=== PATIENT | male | born 1965 | race Caucasian/White ===

== ENCOUNTER → 2017-05-13 | Outpatient (CLI) | payer BC ==
[~2017-05-13] MED LIST: HYDR-3419 PO; LISI-461 PO
--- NOTE | 2017-05-13 13:10 | DIAGNOSTIC IMAGING REPORT ---
TESTICULAR ULTRASOUND HISTORY: TESTICULAR MASS COMPARISON: Testicular ultrasound 01/21/2016. FINDINGS: Right testis: 5.1 x 3.4 x 2.5 cm. There are no intratesticular masses. Normal color flow. No hydrocele. Small varicocele, unchanged. There are few small cysts at the tail of the right epididymis with the largest measuring 2 cm. In retrospect, these were present on the prior study. There are also a few subcentimeter epididymal head cyst. Left testis: 3.7 x 3.7 x 2.3 cm. There are no intratesticular masses. Normal color flow. No hydrocele. Small varicocele, unchanged. Multiple cysts adjacent to the left testis with the largest measuring 5 cm. This is located superior to the left testis and obscures the epididymal head. These are not significantly changed and likely represent epididymal cysts. IMPRESSION: 1. Normal bilateral testes. 2. Bilateral extratesticular cysts which likely represent epididymal cysts. These are considered to be benign. 3. Small bilateral varicoceles, unchanged. 4. No testicular masses. Electronically signed by: Miguel Sher M.D. 05/13/2017 1:08 PM Dictated Date/Time: 05/13/2017 1:04 PM
== END | disposition home or self-care (01) ==
LOC: C.ULTR 12:28
PROVIDERS: ATTEND Family Medicine
DX: N50.9 Disorder of male genital organs, unspecified (principal); L72.0 Epidermal cyst; I86.1 Scrotal varices

== ENCOUNTER → 2017-08-27 | Day surgery (SDC) | payer BC ==
--- NOTE | 2017-08-11 10:36 | PAT Medication Instructions ---
Service Date Aug 11, 2017. Current Home Medication List Lisinopril (Zestril), 10 MG PO QAM Medication Instructions For Your Scheduled Surgery - Hold the following medications the morning of surgery: Lisinopril (Zestril), 10 MG PO QAM Nothing to eat or drink after midnight If you have any questions please call us at [phone] or [phone] or [phone]
--- NOTE | 2017-08-11 11:08 | DIAGNOSTIC IMAGING REPORT ---
CHEST PREADMISSION(PA/LAT) CLINICAL HISTORY: Preoperative chest COMPARISON STUDY: No previous studies for comparison. FINDINGS: The cardiac and mediastinal contours are normal. There is no evidence of focal pulmonary consolidation. There is no evidence of failure. No pleural effusions are visualized.[ There are linear subsegmental atelectatic changes at the left lung base. IMPRESSION: Minor left basilar atelectasis. Otherwise negative chest. Electronically signed by: Ronnell Bates M.D. 08/11/2017 11:06 AM Dictated Date/Time: 08/11/2017 11:06 AM
[2017-08-11 11:28] LABS: BASO % 0.2 %; BASO ABS # 0.01 K/uL (0-0.2); COMPLETE YES; IG% 0.5 %; LYMPH % 23.8 %; LYMPH ABS # 1.33 K/uL (1.2-3.4); MEAN CELL VOLUME 87.9 fL (80-100); MEAN CORPUSCULAR HEMOGLOBIN 32.7 pg (25-34); MEAN CORPUSCULAR HGB CONC 37.2 g/dl (32-36); MEAN PLATELET VOLUME 11.5 fL (7.4-10.4); MONO % 6.6 %; NEUT % 65.9 %; PLATELET COUNT 117 K/uL (130-400); RED BLOOD COUNT 4.89 M/uL (4.7-6.1); WHITE BLOOD COUNT 5.58 K/uL (4.8-10.8)
[2017-08-11 11:30] LABS: URINE APPEARANCE CLEAR (CLEAR); URINE BILIRUBIN NEG (NEG); URINE COLOR YELLOW; URINE EPITHELIAL CELL AUTO 0-5 /lpf (0-5); URINE NITRITE NEG (NEG); URINE SPECIFIC GRAVITY 1.014 (1.000-1.030); UROBILINOGEN NEG (NEG)
[2017-08-11 11:35] LABS: MANUAL MICROSCOPIC REQUIRED? NO; REVIEW REQ? NO
[2017-08-11 13:19] LABS: BUN/CREATININE RATIO 13.3 (10-20); CALCIUM 9.2 mg/dl (8.5-10.1); CREATININE 0.92 mg/dl (0.60-1.40)
[~2017-08-27] VITALS: Ht 182.9 cm; Wt 100.8 kg
[~2017-08-27] MED LIST changes: +ATROPINE SULFATE 0.1 MG/ML 5ML SYR IV PRN; +CEFAZOLIN 2000 MG/60 ML D5W IV SCH; +CEFAZOLIN IV 2,000 MG/60 ML D5W IV ONE; +DEXAMETHASONE SOD INJ 4 MG/ML VIAL ONE; +EpHEDrine SULFATE INJ 50 MG/ML AMP IV PRN; +FENTANYL CITRATE INJ 50 MCG/1 ML 2 ML VIAL IV PRN; +FENTANYL CITRATE INJ 50 MCG/1 ML 2 ML VIAL ONE; +GENERAL ORDER PROBLEM SCH; +LACTATED RINGER'S 1000ML 1,000 ML IV SCH; +LIDOCAINE HCL 1% 20 ML VIAL ONE; +LIDOCAINE HCL 2% 2 ML VIAL (20MG/ML) ONE; +MIDAZOLAM HCL 1 MG/ML 2ML VIAL ONE; +NURSING VERBAL MED ORDER ONE; +ONDANSETRON INJ 2 MG/ML 2 ML VIAL IV PRN; +ONDANSETRON INJ 2 MG/ML 2 ML VIAL ONE; +PROPOFOL IV EMULSION 10 MG/ML 20 ML VIAL IV ONE
[2017-08-27 05:38] VITALS: BP 136/81; PULSE 96; TEMP 36.7; O2SAT 96; Ht 182.9 cm; Wt 100.8 kg
--- NOTE | 2017-08-27 07:10 | History & Physical Bridge Note ---
H&P Re-Evaluation Bridge Note: I have examined the patient, reviewed the History & Physical and in the interval since the performance of the History & Physical I have noted the following changes of clinical significance: No changes noted
--- NOTE | 2017-08-27 08:56 | [facility] Post Operative Brief Note ---
Immediate Operative Summary Operative Date Aug 27, 2017. Pre-Operative Diagnosis Spermatocele Post-Operative Diagnosis Spermatocele Procedure(s) Performed Left Scrotal Spermatocelectomy Surgeon Dr. Aggarwal Infant Babysitter Surgeon(s) None Estimated Blood Loss 10CC Findings 3 spermatoceles ,one large and two sub centimeter ones Specimens A: Left Spermatocele B: Second Small Spermatocele
--- NOTE | 2017-08-27 09:00 | Discharge Instructions ---
Discharge Instructions Date of Service Aug 27, 2017. Visit Reason for Visit: Spermatocele Discharge Discharge Diagnosis / Problem: post op left spematocelectomy Discharge Goals Goal(s): Decrease discomfort, Improve function, Increase independence, Improve disease control Activity Recommendations Activity Limitations: per Instructions/Follow-up section (ice 45 minutes on 15 off while awake,no shower 48 hours) no driving on narcotics ,light activity next week Anesthesia . Post Anesthesia Instructions: If you have had General Anesthesia or IV Sedation: * Do not drive today. * Resume driving when surgeon permits. * Do not make important decisions or sign legal documents today. * Call surgeon for: 1. Temperature elevations greater than 101 degrees F. 2. Uncontrollable pain. 3. Excessive bleeding. 4. Persistent nausea and vomiting. 5. Medication intolerance (nausea, vomiting or rash). * For nausea and vomiting use only clear liquids such as: tea, soda, bouillon until nausea subsides, then gradually increase diet as tolerated. * If you have any concerns or questions, call your surgeon's office. If physician is unavailable and it is an emergency, call 911 or go to the nearest emergency room. . Diet Recommendations Recommended Home Diet: resume previous diet Procedures Procedures Performed: Left Scrotal Spermatocelectomy Pending Studies Studies pending at discharge: no Medical Emergencies . Who to Call and When: Medical Emergencies: If at any time you feel your situation is an emergency, please call 911 immediately. . Non-Emergent Contact Non-Emergency issues call your: Urologist Call Non-Emergent contact if: temperature is above 100.5, your pain is not controlled, wound has increased redness . . "Provider Documentation" section prepared by Twin Aggarwal. .
--- NOTE | 2017-08-27 09:19 | OPERATIVE REPORT ---
DATE OF OPERATION: 08/27/2017 PROCEDURE PERFORMED: Left spermatocelectomy. PREOPERATIVE DIAGNOSIS: Left spermatocele. POSTOPERATIVE DIAGNOSES: Two small left spermatoceles and one large left spermatocele. SURGEON: Twin Aggarwal MD ANESTHESIA: General. INDICATIONS FOR PROCEDURE: The patient is a 52-year-old male with ongoing discomfort from a left spermatocele who elected to have surgery for this. DESCRIPTION OF THE PROCEDURE: The patient was taken to the operating room after he was given preoperative antibiotics and Venodyne stockings were placed. He was given general anesthesia. He had shaved previously his scrotal area. He was then prepped and draped in the usual sterile fashion. Then an incision was made horizontally in the mid left hemiscrotum. This incision was extended down through the dartos muscle with electrocautery. The tunica vaginalis was opened and the testes and the spermatocele and the cord were expressed through the tunica vaginalis. The spermatocele was envisioned and I dissected down to just on top of the sac with the larger sac which was the most superior part of the spermatocele. This was the largest spermatocele. I dissected it completely down to its base so that the sac was intact at its base, I clamped the base and just below the base cut the sac, tried to tie it but the tie came off but the sac was completely intact and tied the base with a 3-0 Vicryl suture. I did tie off 2 smaller subcentimeter; one about 8 mm and one about 4-5 mm that were closer to the testis. No other spermatoceles were seen. Then I was careful to cauterize any areas of bleeding. I then closed the epididymis with a running 3-0 chromic suture. Again, search for any bleeders and then closed the dartos muscle with a running 3-0 chromic placing a quarter inch Wilmer drain in the most dependent part of the scrotum and sewing this in the place with nylon. The patient had his skin closed with interrupted vertical mattress sutures of 3-0 chromic. At the end of the procedure, fluff dressings were placed and a scrotal support was placed. The patient was transferred to the recovery room in stable condition. I attest to the content of the Intraoperative Record and any orders documented therein. Any exception s are noted below.
--- NOTE | 2017-08-27 09:46 | Anesthesiology Progress Note ---
Anesthesia Post Op Note Date & Time Aug 27, 2017 at 09:46 Vital Signs Pain Intensity: 3 Vital Signs Past 12 Hours Date Time Temp Pulse Resp B/P (MAP) Pulse Ox O2 Delivery O2 Flow Rate FiO2 08/27/17 09:25 70 20 123/70 93 Room Air Oxymask 08/27/17 09:15 70 20 109/70 97 Oxymask 10 08/27/17 09:05 73 20 115/62 97 Oxymask 10 08/27/17 08:55 36.1 73 20 120/72 97 Oxymask 10 08/27/17 05:38 36.7 96 18 136/81 (99) 96 Room Air Notes Mental Status: alert / awake / arousable, participated in evaluation Pt Amnestic to Procedure: Yes Nausea / Vomiting: adequately controlled Pain: adequately controlled Airway Patency, RR, SpO2: stable & adequate BP & HR: stable & adequate Hydration State: stable & adequate Anesthetic Complications: no major complications apparent
[2017-08-27 10:00] VITALS: BP 133/86; PULSE 65; TEMP 36.2; O2SAT 96
[2017-08-27 10:30] VITALS: BP 132/76; PULSE 71; O2SAT 93
[2017-08-27 11:00] VITALS: BP 153/91; PULSE 68; TEMP 36.6; O2SAT 96
== END | disposition home or self-care (01) ==
LOC: C.ACU 05:22
PROVIDERS: ATTEND Urology
DX: N43.40 Spermatocele of epididymis, unspecified (principal); N40.0 Benign prostatic hyperplasia without lower urinary tract symptoms; Z68.30 Body mass index [BMI] 30.0-30.9, adult; M19.90 Unspecified osteoarthritis, unspecified site; Z82.49 Family history of ischemic heart disease and other diseases of the circulatory system; Z83.3 Family history of diabetes mellitus

== ENCOUNTER 2022-04-15 17:51 | Inpatient (IN) ==
[2022-04-15] MEDS ORDERED: MULTI-VITAMIN INFUSION 10 ML, THIAMINE HCL 100 MG, FOLIC ACID 1 MG in SODIUM CHLORIDE 0... IV ONE (18:02)
--- NOTE | 2022-04-15 18:05 | Emergency Department Note ---
Impression & Plan Overdose, Depression with suicidal ideation ED Provider Note NAME: DERIAN IQBAL AGE: 56 SEX: M : 1965 ARRIVES VIA: Walk-In INFORMANT: Patient, ED PROVIDER(S): Alen Yañez MD Chief Complaint: Overdose HPI: Patient presents due to concern for overdose taking an unknown amount of Klonopin and mixing it with a glass of tequila which occurred sometime after lunch today. The patient had done it with the intention of harming himself. The patient had also put a kitchen knife to the right side of his neck. The patient does have a prior history of depression and did suffer a breakdown maybe 20 years ago when he was having some marital issues but this has not been an issue since then. The patient states that he did feel very overwhelmed today. Patient denies any access to guns or weapons and does not have any knives on him currently. The patient denies taking anything else with the exception of the Klonopin and the alcohol. Patient is also prescribed sertraline Wellbutrin denies taking this inappropriately. Patient denies tobacco. Patient denies any nausea vomiting diarrhea chest pain or shortness of breath. ROS: See HPI for pertinent positives and negatives. A total of 10 systems were reviewed and otherwise negative. Past medical history: See below Surgical history: See below Social history: See below Physical Exam: GENERAL: NAD, wearing a mask, non-toxic. EYE EXAM: Normal conjunctiva. PERRL, no anisocoria and EOM's grossly intact w/o pain. OROPHARYNX: Moist mucus membranes. Grossly normal dentition. NECK: Supple, no nuchal rigidity, no adenopathy, non-tender. No signs of meningismus. Small eschar to the right lateral neck, does not violate the platysmus. No signs of hematoma. LUNGS: Clear to auscultation. Normal chest wall mechanics. HEART: NSR, no MRG. ABDOMEN: Abdomen soft, non-tender, normo-active bowel sounds, no masses, no rebound or guarding. BACK: No CVA TTP. SKIN: No rashes and no bruising. UPPER EXTREMITIES: Upper extremities are grossly normal. LOWER EXTREMITIES: Grossly normal, no edema. NEURO EXAM: A&O x3, cranial nerves II-XII grossly intact, normal speech, moves all 4 extremities on command w/o issue. Psych: Positive SI, negative HI or AVH. Differential diagnoses: Mood disorder, infection, hypoglycemia, electrolyte abnormalities, cardiac sources, intracerebral event, toxicologic, trauma, neurologic, as well as other pathologies. Course: Patient was seen and evaluated the bedside. Full history physical exam was performed. EKG interpreted by me Normal sinus rhythm, rate of 76, normal [place] and QRS and QT, left axis deviation, T wave version lead III and aVF. No ST elevations. Imaging Studies: See Below Cardiac monitoring: An order was placed for continuous cardiac monitoring. The monitor shows a rate of 77 with sinus rhythm. MDM: Patient was seen due to concern for overdose. Blood work was obtained along with UDS and talk screen. Patient was ordered a banana bag. He states that he does not drink daily but this was done out of a abundance of caution to help with electrolyte and vitamin replacement. Tetanus is up-to-date. Patient was clinically sober and evaluated by the case management coordinator patient blood work is fairly unremarkable. Patient was unable to describe the amount of Klonopin taken but the patient was eventually clinically sober and the patient's alcohol is only 50. Patient was he medically cleared. Patient was accepted to [facility] and accepted to the inpatient psychiatric service. Past Med/Surg History Medical History Depression H/O: HTN (hypertension) Surgical History No pertinent past surgical history Social History Smoking Status: Never smoker Hx Alcohol Use: Yes Hx Substance Use: No Feels Safe at Home: Yes Allergies Allergies Allergy/AdvReac Type Severity Reaction Status Date / Time No Known Allergies Allergy Verified 04/15/22 18:29 Home Meds Home Medications Medication Instructions Recorded Confirmed bupropion HCl 150 mg 24 hr tablet, 150 mg PO QAM 04/15/22 04/15/22 extended release (Wellbutrin XL) clonazepam 0.25 mg disintegrating 0.125 mg PO DIRECTED PRN 04/15/22 04/15/22 tablet hydrochlorothiazide 25 mg tablet 25 mg PO DAILY 04/15/22 04/15/22 lisinopril 40 mg tablet 40 mg PO DAILY 04/15/22 04/15/22 sertraline 100 mg tablet (Zoloft) 100 mg PO QAM 04/15/22 04/15/22 trazodone 150 mg tablet 150 mg PO HS 04/15/22 04/15/22 Results & Data (ED) Vital Signs Vital Signs - 24 hr 04/15/22 17:55 04/15/22 18:25 04/15/22 19:11 Temperature 36.6 C Temperature Source Temporal Artery Scan Pulse Rate 88 Pulse Rate [Apical] 71 67 Pulse Rhythm [Apical] Regular Pulse Strength [Apical] Respiratory Rate 14 14 21 Respiratory Effort / Characteristics Non-Labored Non-Labored Spontaneous Respiratory Depth Normal Normal Shallow Blood Pressure 86/53 L Blood Pressure [Left Arm] 96/45 L 91/55 L Blood Pressure Mean 64 Blood Pressure Mean [Left Arm] 62 67 Pulse Oximetry 94 96 93 Oxygen Delivery Method Room Air Room Air Room Air Sepsis Recent Fever Within 48 Hours No Sepsis New/Unexplained Change in Mental Status No Sepsis Action Taken by Nursing No Action Required 04/15/22 21:14 Temperature Temperature Source Pulse Rate Pulse Rate [Apical] 65 Pulse Rhythm [Apical] Regular Pulse Strength [Apical] Normal Respiratory Rate 21 Respiratory Effort / Characteristics Non-Labored Respiratory Depth Normal Blood Pressure Blood Pressure [Left Arm] 108/65 Blood Pressure Mean Blood Pressure Mean [Left Arm] 79 Pulse Oximetry 96 Oxygen Delivery Method Room Air Sepsis Recent Fever Within 48 Hours Sepsis New/Unexplained Change in Mental Status Sepsis Action Taken by Residential Medications Current Medication List: was personally reviewed by me Laboratory Data Attestation: I reviewed the patient's lab results. Result diagrams: 04/15/22 18:16 04/15/22 18:16 Lab Results 04/15/22 04/15/22 04/15/22 Range/Units 18:16 18:16 18:16 WBC 5.80 (4.8-10.8) K/uL RBC 4.74 (4.7-6.1) M/uL Hgb 16.0 (14.0-18.0) g/dL Hct 43.6 (42-52) % MCV 92.0 (80-100) fL MCH 33.8 (25-34) pg MCHC 36.7 H (32-36) g/dL RDW Std Deviation 43.2 (36.4-46.3) fL RDW Coeff of Stacey 12.7 (11.5-14.5) % Plt Count 125 L (130-400) K/uL MPV 11.9 H (7.4-10.4) fL Immature Gran % (Auto) 0.2 % Neut % (Auto) 64.0 % Lymph % (Auto) 27.1 % Hawkins % (Auto) 7.1 % Eos % (Auto) 1.4 % Baso % (Auto) 0.2 % Neut # (Auto) 3.72 (1.4-6.5) K/uL Lymph # (Auto) 1.57 (1.2-3.4) K/uL Hawkins # (Auto) 0.41 (0.11-0.59) K/uL Eos # (Auto) 0.08 (0-0.5) K/uL Baso # (Auto) 0.01 (0-0.2) K/uL Immature Gran # (Auto) 0.01 (0.00-0.02) K/uL Sodium 139 (136-145) mmol/L Potassium 3.3 L (3.5-5.1) mmol/L Chloride 102 (98-107) mmol/L Carbon Dioxide 28 (21-32) mmol/L Anion Gap 9 (3-11) BUN 18 (6-23) mg/dl Creatinine 1.25 (0.6-1.4) mg/dl Est Cr Clr Drug Dosing Not Reportable Est GFR ( Amer) 73.1 ml/min Est GFR (Non-Af Amer) 63.1 ml/min BUN/Creatinine Ratio 14.4 (10-20) Glucose 88 (70-99(Fasting)) mg/dl Calcium 9.3 (8.5-10.1) mg/dl Magnesium (1.7-2.4) mg/dl Total Bilirubin 0.6 (0.2-1.0) mg/dl AST 11 L (13-39) U/L ALT 16 (7-52) U/L Alkaline Phosphatase 61 (34-104) U/L Total Protein 6.5 (6.0-8.3) gm/dl Albumin 4.0 (3.4-5.0) gm/dl Globulin 2.5 (2.5-4.0) gm/dl Albumin/Globulin Ratio 1.6 (0.9-2) TSH 2.455 (0.300-4.500) uIu/ml Urine Color Urine Appearance (Clear) Urine pH (4.5-7.5) Ur Specific [place] (1.000-1.030) Urine Protein (Negative) Urine Glucose (UA) (Negative) Urine Ketones (Negative) Urine Blood (Negative) Urine Nitrite (Negative) Urine Bilirubin (Negative) Urine Urobilinogen (Negative) Ur Leukocyte Esterase (Negative) Urine WBC (Auto) (0-5) /hpf Urine RBC (Auto) (0-4) /hpf U Hyaline Cast (Auto) (0-5) /lpf U Epithel Cells (Auto) (0-5) /lpf Urine Bacteria (Auto) (Negative) Granular Casts (0) /lpf Urine Mucus (None Prsent) Salicylates (3.0-30) mg/dl Urine Opiates Screen (Neg) Ur Methadone, Qual (Neg) Acetaminophen (10-30) ug/ml Urine Barbiturates (Neg) Ur Phencyclidine (PCP) (Neg) U Amphetamin/Meth Scrn (Neg) MDMA (Ecstasy) Screen (Neg) U Benzodiazepines Scrn (Neg) Ur Cocaine Metabolite (Neg) U Marijuana (THC) Screen (Neg) Ethyl Alcohol mg/dL (<10.0) mg/dl SARS-CoV-2, RNA, NAAT (NEGATIVE) 04/15/22 04/15/22 04/15/22 Range/Units 18:16 18:16 18:16 WBC (4.8-10.8) K/uL RBC (4.7-6.1) M/uL Hgb (14.0-18.0) g/dL Hct (42-52) % MCV (80-100) fL MCH (25-34) pg MCHC (32-36) g/dL RDW Std Deviation (36.4-46.3) fL RDW Coeff of Stacey (11.5-14.5) % Plt Count (130-400) K/uL MPV (7.4-10.4) fL Immature Gran % (Auto) % Neut % (Auto) % Lymph % (Auto) % Hawkins % (Auto) % Eos % (Auto) % Baso % (Auto) % Neut # (Auto) (1.4-6.5) K/uL Lymph # (Auto) (1.2-3.4) K/uL [place] # (Auto) (0.11-0.59) K/uL Eos # (Auto) (0-0.5) K/uL Baso # (Auto) (0-0.2) K/uL Immature Gran # (Auto) (0.00-0.02) K/uL Sodium (136-145) mmol/L Potassium (3.5-5.1) mmol/L Chloride (98-107) mmol/L Carbon Dioxide (21-32) mmol/L Anion Gap (3-11) BUN (6-23) mg/dl Creatinine (0.6-1.4) mg/dl Est Cr Clr Drug Dosing Est GFR ( Amer) ml/min Est GFR (Non-Af Amer) ml/min BUN/Creatinine Ratio (10-20) Glucose (70-99(Fasting)) mg/dl Calcium (8.5-10.1) mg/dl Magnesium 2.1 (1.7-2.4) mg/dl Total Bilirubin (0.2-1.0) mg/dl AST (13-39) U/L ALT (7-52) U/L Alkaline Phosphatase (34-104) U/L Total Protein (6.0-8.3) gm/dl Albumin (3.4-5.0) gm/dl Globulin (2.5-4.0) gm/dl Albumin/Globulin Ratio (0.9-2) TSH (0.300-4.500) uIu/ml Urine Color Urine Appearance (Clear) Urine pH (4.5-7.5) Ur Specific [place] (1.000-1.030) Urine Protein (Negative) Urine Glucose (UA) (Negative) Urine Ketones (Negative) Urine Blood (Negative) Urine Nitrite (Negative) Urine Bilirubin (Negative) Urine Urobilinogen (Negative) Ur Leukocyte Esterase (Negative) Urine WBC (Auto) (0-5) /hpf Urine RBC (Auto) (0-4) /hpf U Hyaline Cast (Auto) (0-5) /lpf U Epithel Cells (Auto) (0-5) /lpf Urine Bacteria (Auto) (Negative) Granular Casts (0) /lpf Urine Mucus (None Prsent) Salicylates < 3.0 L (3.0-30) mg/dl Urine Opiates Screen (Neg) Ur Methadone, Qual (Neg) Acetaminophen < 3 L (10-30) ug/ml Urine Barbiturates (Neg) Ur Phencyclidine (PCP) (Neg) U Amphetamin/Meth Scrn (Neg) MDMA (Ecstasy) Screen (Neg) U Benzodiazepines Scrn (Neg) Ur Cocaine Metabolite (Neg) U Marijuana (THC) Screen (Neg) Ethyl Alcohol mg/dL 50.9 H (<10.0) mg/dl SARS-CoV-2, RNA, NAAT (NEGATIVE) 04/15/22 04/15/22 04/15/22 Range/Units 19:51 20:54 20:54 WBC (4.8-10.8) K/uL RBC (4.7-6.1) M/uL Hgb (14.0-18.0) g/dL Hct (42-52) % MCV (80-100) fL MCH (25-34) pg MCHC (32-36) g/dL RDW Std Deviation (36.4-46.3) fL RDW Coeff of Stacey (11.5-14.5) % Plt Count (130-400) K/uL MPV (7.4-10.4) fL Immature Gran % (Auto) % Neut % (Auto) % Lymph % (Auto) % [place] % (Auto) % Eos % (Auto) % Baso % (Auto) % Neut # (Auto) (1.4-6.5) K/uL Lymph # (Auto) (1.2-3.4) K/uL [place] # (Auto) (0.11-0.59) K/uL Eos # (Auto) (0-0.5) K/uL Baso # (Auto) (0-0.2) K/uL Immature Gran # (Auto) (0.00-0.02) K/uL Sodium (136-145) mmol/L Potassium (3.5-5.1) mmol/L Chloride (98-107) mmol/L Carbon Dioxide (21-32) mmol/L Anion Gap (3-11) BUN (6-23) mg/dl Creatinine (0.6-1.4) mg/dl Est Cr Clr Drug Dosing Est GFR ( Amer) ml/min Est GFR (Non-Af Amer) ml/min BUN/Creatinine Ratio (10-20) Glucose (70-99(Fasting)) mg/dl Calcium (8.5-10.1) mg/dl Magnesium (1.7-2.4) mg/dl Total Bilirubin (0.2-1.0) mg/dl AST (13-39) U/L ALT (7-52) U/L Alkaline Phosphatase (34-104) U/L Total Protein (6.0-8.3) gm/dl Albumin (3.4-5.0) gm/dl Globulin (2.5-4.0) gm/dl Albumin/Globulin Ratio (0.9-2) TSH (0.300-4.500) uIu/ml Urine Color Yellow Urine Appearance Clear (Clear) Urine pH 5.5 (4.5-7.5) Ur Specific [place] 1.015 (1.000-1.030) Urine Protein Negative (Negative) Urine Glucose (UA) Negative (Negative) Urine Ketones Negative (Negative) Urine Blood Trace H (Negative) Urine Nitrite Negative (Negative) Urine Bilirubin Negative (Negative) Urine Urobilinogen Negative (Negative) Ur Leukocyte Esterase Negative (Negative) Urine WBC (Auto) 1-5 (0-5) /hpf Urine RBC (Auto) 0-4 (0-4) /hpf U Hyaline Cast (Auto) 10-30 H (0-5) /lpf U Epithel Cells (Auto) 20-30 H (0-5) /lpf Urine Bacteria (Auto) Negative (Negative) Granular Casts 1-5 H (0) /lpf Urine Mucus Present A (None Prsent) Salicylates (3.0-30) mg/dl Urine Opiates Screen Neg (Neg) Ur Methadone, Qual Neg (Neg) Acetaminophen (10-30) ug/ml Urine Barbiturates Neg (Neg) Ur Phencyclidine (PCP) Neg (Neg) U Amphetamin/Meth Scrn Neg (Neg) MDMA (Ecstasy) Screen Pos H (Neg) U Benzodiazepines Scrn Neg (Neg) Ur Cocaine Metabolite Neg (Neg) U Marijuana (THC) Screen Neg (Neg) Ethyl Alcohol mg/dL (<10.0) mg/dl SARS-CoV-2, RNA, NAAT NEGATIVE (NEGATIVE) Administered Medications Discontinued Medications Multivitamins 10 ml/ Thiamine HCl 100 mg/ Folic Acid 1 mg/Sodium Chloride 1,011.2 mls @ 1,011.2 mls/hr IV .Q1H ONE Stop: 04/15/22 19:01 Last Infusion: 04/15/22 20:10 Dose: 0 mls/hr Documented by: [id number] Admin: 04/15/22 19:06 Dose: 1,011.2 mls/hr Documented by: [id number] Sodium Chloride (Nss 1000ml) 1,000 mls @ 999 mls/hr IV .Q1H1M ONE Stop: 04/15/22 20:36 Last Infusion: 04/15/22 21:50 Dose: 0 mls/hr Documented by: [id number] Admin: 04/15/22 20:20 Dose: 999 mls/hr Documented by: [id number] Potassium Chloride (Potassium Chloride Crtab 20 Meq Tabcr) 40 meq PO NOW STA Stop: 04/15/22 19:37 Last Admin: 04/15/22 20:18 Dose: 40 meq Documented by: [id number] Discharge Plan Visit Data Chief Complaint: Mental Health Evaluation Stated Complaint: MHID, [place] OD?, ETOH, SUICIDAL IDEATION ED Provider: Alen Yañez Discharge Problem: Overdose, Depression with suicidal ideation Forms Stand Alone Forms: [facility], Suicide Prevention Resources Prescriptions Prescriptions: No Action sertraline [Zoloft] 100 mg tablet 100 mg PO QAM RF: 0 trazodone 150 mg tablet 150 mg PO HS RF: 0 hydrochlorothiazide 25 mg Tablet 25 mg PO DAILY RF: 0 lisinopril 40 mg Tablet 40 mg PO DAILY RF: 0 clonazepam [Klonopin] 0.25 mg Tablet,Disintegrating 0.125 mg PO DIRECTED PRN (Reason: NEEDED PER PT) RF: 0 bupropion HCl [Wellbutrin XL] 150 mg tablet extended release 24 hr 150 mg PO QAM RF: 0 Referrals Referrals: Keya Chambers [Primary Care Provider] -
[2022-04-15 19:00] LABS: Basophils # (auto) 0.01 K/uL (0-0.2); Basophils % (auto) 0.2 %; Eosinophils # (auto) 0.08 K/uL (0-0.5); Eosinophils % (auto) 1.4 %; Hematocrit (blood only) 43.6 % (42-52); Immature Granulocytes # (auto) 0.01 K/uL (0.00-0.02); Immature Granulocytes % (auto) 0.2 %; Lymphocytes # (auto) 1.57 K/uL (1.2-3.4); Lymphocytes % (auto) 27.1 %; Mean Corpuscular Hemoglobin 33.8 pg (25-34); Mean Corpuscular Hgb Conc 36.7 g/dL (32-36); Mean Platelet Volume 11.9 fL (7.4-10.4); Monocytes # (auto) 0.41 K/uL (0.11-0.59); Monocytes % (auto) 7.1 %; Neutrophils # (auto) 3.72 K/uL (1.4-6.5); Platelet Count 125 K/uL (130-400); RDW Coefficient of Variation 12.7 % (11.5-14.5); RDW Standard Deviation 43.2 fL (36.4-46.3); Red Blood Count 4.74 M/uL (4.7-6.1)
[2022-04-15 19:10] LABS: Acetaminophen < 3 ug/ml (10-30); Alanine Aminotransferase 16 U/L (7-52); Albumin Globulin Ratio 1.6 (0.9-2); Alkaline Phosphatase 61 U/L (34-104); Anion Gap 9 (3-11); Aspartate Aminotransferase 11 U/L (13-39); BUN Creatinine Ratio 14.4 (10-20); Bilirubin,Total 0.6 mg/dl (0.2-1.0); Blood Urea Nitrogen 18 mg/dl (6-23); Calcium 9.3 mg/dl (8.5-10.1); Carbon Dioxide 28 mmol/L (21-32); Chloride 102 mmol/L (98-107); Est GFR (African American) 73.1 ml/min; Est GFR (Non-African American) 63.1 ml/min; Globulin 2.5 gm/dl (2.5-4.0); Glucose 88 mg/dl (70-99(Fasting)); Potassium 3.3 mmol/L (3.5-5.1); Salicylate < 3.0 mg/dl (3.0-30); Sodium 139 mmol/L (136-145); Total Protein 6.5 gm/dl (6.0-8.3)
[2022-04-15] MEDS ORDERED: SODIUM CHLORIDE 0.9% 1000ML 1,000 ML IV ONE (19:36)
[2022-04-15] MEDS ORDERED: POTASSIUM CHLORIDE CRTAB 20 MEQ TABCR PO STA (19:36)
[2022-04-15 21:13] LABS: Appearance Urine Clear (Clear); Bacteria Urine Automated Negative (Negative); Bilirubin Urine Negative (Negative); Blood Urine Trace (Negative); Color Urine Yellow; Epithelial Cell Urine Auto 20-30 /lpf (0-5); Glucose Urine UA Negative (Negative); Ketones Urine Negative (Negative); Leukocyte Esterase Urine Negative (Negative); Nitrite Urine Negative (Negative); Protein Urine Negative (Negative); RBC Urine Automated 0-4 /hpf (0-4); Specific Gravity Urine 1.015 (1.000-1.030); Urobilinogen Urine Negative (Negative); pH Urine 5.5 (4.5-7.5)
[2022-04-15 21:30] LABS: Amphetamines+Metham, Urine Neg (Neg); Barbiturates, Urine Neg (Neg); Benzodiazepine, Urine Neg (Neg); Cocaine, Urine Neg (Neg); MDMA (Ecstacy), Urine Pos (Neg); Methadone, Urine Neg (Neg); Opiate, Urine Neg (Neg); Phencyclidine, Urine Neg (Neg)
[2022-04-15 21:40] LABS: Mucus Urine Present (None Prsent)
[2022-04-15] MEDS ORDERED: ACETAMINOPHEN 325 MG TAB PO PRN (22:37)
[2022-04-15] MEDS ORDERED: MAGNESIUM HYDROXIDE SUSP 30 ML UDC PO PRN (22:37)
[2022-04-15] MEDS ORDERED: LORazepam 1 MG TAB PO PRN (22:37)
[2022-04-15] MEDS ORDERED: hydrOXYzine HCl 25 MG TAB PO PRN ×2 (22:37)
[2022-04-15] MEDS ORDERED: ALUMINUM/MAGNESIUM SUSP 30 ML UDC PO PRN (22:37)
[2022-04-15] MEDS ORDERED: BISMUTH SUBSALICYLATE LIQD 236 ML PO PRN (22:37)
[2022-04-15] MEDS ORDERED: SODIUM CHLORIDE 0.65% NA SOLN 45 ML (OCEAN) PRN (22:37)
--- NOTE | 2022-04-16 02:25 | Emergency Department Note ---
ED Visit Note Patient accepted to [facility] I signed 201. patient admitted with MDD. . : Overdose Qualifiers: Encounter type: initial encounter Injury intent: intentional self-harm Qualified Code(s): T50.902A - Poisoning by unspecified drugs, medicaments and biological substances, intentional self-harm, initial encounter
--- NOTE | 2022-04-16 08:34 | History & Physical ---
Date of Service April 16, 2022 Impression / Recommendations Impression This is a 56 year old man with a history of depression and anxiety who was admitted for suicide attempt via overdose of clonazepam and alcohol and knife laceration in the context of multiple recent stressors including unsuccessful move to [place] with recent relocation back to [place]. Diagnostically consistent with MDD with anxious distress as well as ROSE with panic attack. The patient is deemed unstable and requires psychiatric hospitalization for diagnostic clarification, safety and stabilization, medication management and development of further coping skills. Given his overdose and ongoing sedation will hold his prior to admission psychiatric medications for one more day. We did discuss medication options including restarting sertraline and Wellbutrin vs alternative SSRI vs SNRI. He's thinking he would like to try Cymbalta as it could also help with his back and leg nerve pain. For now will hold on all medications including his home antihypertensives for one more day given low BP this morning and normal this afternoon. (1) Recurrent severe major depressive disorder with anxiety: (2) Depression with suicidal ideation: (3) Overdose: Encounter type: initial encounter Injury intent: intentional self-harm Qualified Code(s): T50.902A - Poisoning by unspecified drugs, med icaments and biological substances, intentional self-harm, initial encounter (4) Generalized anxiety disorder with panic attacks: 04/16/22: The patient was admitted to the [facility] ([facility] mental health unit) on q15 min checks (behavioral with suicide precautions) for safety. The patient will participate in group, recreational, and milieu therapies and will be offered additional individual and family sessions as clinically appropriate. -AWSS given clonazepam overdose and prescribed use prior to admission to monitor for vitals and withdrawal symptoms -Hold prior to admission Wellbutrin and sertraline and home antihypertensives lisinopril and hydrochlorothiazide -Likely will start Cymbalta tomorrow -Will contact Dr. Helton for further collateral/updates Inventory Assets Strengths: outpatient support, , willing to seek treatment Needs: additional coping skills, safety/stabilization Suicide Risk Level Suicide Risk Level: High (q15 min suicide checks) Suicide Risk Level Comments: Acute risk is high given suicide attempt and laceration prior to admission, depression, and hopelessness but feels safe on the unit and denies current SI. Risk Factors Assessment Male: Yes : Yes Do You Have Access To A Gun?: No Health Problems: No Mental Health Diagnoses: Yes Substance Use Disorders: No Previous Attempt: Yes Family History of Suicide: No Previous Psychiatric Hospitalization: No Hopelessness: Yes Protective Factors Assessment : Yes Employed: No Stable Relationships: Yes Supportive Family: Yes Good Rapport with Provider: Yes Psychiatric History Identifying Data DERIAN IQBAL is a 56-year-old man who currently lives in [place] with his , has a history of depression and anxiety, and was admitted on 04/15/22 22:37 on a 201 voluntary commitment for suicide attempt via ingestion of clonazepam and alcohol and cutting throat superficially with a knife. Chief Complaint "Everything that could have gone wrong did". History of Present Illness Derian presents for psychiatric admission for worsening depression and suicide attempt via ingestion of unknown quantity of clonazepam and alcohol as a suicide attempt as well as cutting his throat with a knife causing a superficial laceration. Estimate of ~15-20 tabs of 0.5 clonazepam. This occurred in the context of multiple psychosocial stressors including recent long term, unsuccessful move and job at [employer] in [place], they couldn't find housing in [place] due to rental being unavailable which was very stressful, disappointment from brief employment with [employer], recently sold their house and now living in a rental. Feeling like a burden due to no longer contributing financially. His therapist has also been away for the last two weeks. Last period of severe depression was during his divorce 20 years ago. Over the last 6 weeks he developed worsening anxiety and depression in context of stressors per above. He notes he a great weekend but then yesterday it "all came crashing in and I couldn't get out of my mind and things just got worse". He feels compared to a few weeks ago he'd been doing better up until yesterday. The SI came on quite abruptly, he can't recall what triggered it but that "it went from good to black that fast". He had thoughts about overdosing before but never acted on it. He wasn't sure how much clonazepam it would take to kill him. He mixed the clonazepam in with the alcohol and then drank it. Then after drinking the alcohol/pill mixture he cut his neck superficially with a knife. He can't recall how he was found or how his got him to the ED. He endorses current depressive symptoms including hopelessness, helplessness, feeling like a burden, back pain, decreased sleep, decreased appetite (lost about 30 lbs over the last 3 months). He also endorses anxiety symptoms including shakiness, panic attacks (last one week ago), and generalized worries. He has been taking sertraline 100mg, Wellbutrin XL 150mg and trazodone 150mg qhs for his mood for about the last 4 weeks and clonazepam since February 2022 for anxiety and panic attacks. Psychiatric ROS notable for no hx or current symptoms of makayla, psychosis, or OCD. Past Psychiatric History Current Psychiatric Diagnosis: prior history of depression 20 years ago; in midst of divorce Outpatient Services: psychiatrist, Dr. Helton in [place] at [facility] (has been seeing for the last month) , and weekly teletherapy with therapist Elena through [facility] (therapy for the last month maybe 3 sessions total). Previous Psych Admissions: none Do You Have Access To A Gun?: No History of Previous Suicide Attempt: No Describe Attempts in the Past: no past attempt, past suicidal ideation Past Medication Trials: hx lorazepam, remeron, fluoxetine, trazodone Past Head Trauma/Neuro History History of Concussion/Seizure: Yes (hx concussion in high school from football, no LOC) Allergies Allergy/AdvReac Type Severity Reaction Status Date / Time cat dander Allergy Intermediate throat Verified 04/16/22 14:29 swollen in past when near cats Home Medications Medication Instructions Recorded Confirmed Type bupropion HCl 150 mg 24 hr tablet, 150 mg PO QAM 04/15/22 04/15/22 History extended release (Wellbutrin XL) clonazepam 0.25 mg disintegrating 0.125 mg PO DIRECTED PRN 04/15/22 04/15/22 History tablet hydrochlorothiazide 25 mg tablet 25 mg PO DAILY 04/15/22 04/15/22 History lisinopril 40 mg tablet 40 mg PO DAILY 04/15/22 04/15/22 History sertraline 100 mg tablet (Zoloft) 100 mg PO QAM 04/15/22 04/15/22 History trazodone 150 mg tablet 150 mg PO HS 04/15/22 04/15/22 History Family History Family History of: None Alcohol History Hx of Alcohol Use Over the Past 12 Months: Yes (endorses drinking a glass of alcohol 04/15, none prior) AUDIT Total Score: 2 usually doesn't drink alcohol Smoking Use Have You Smoked or Used Tobacco Products in the Last 30 Days: No Smoking Status: Never smoker Substance History Hx of Prescription Med Misuse Over the Past 12 Months: Yes (04/15/22 Klonopin ingestion; no history) Hx of Over the Counter Med Misuse Over the Past 12 Months: No Hx of Inhalent Misuse Over the Past 12 Months: No Hx of Organic Substance Use Over the Past 12 Months: No Hx of Illegal Substances/Street Drug Use Over Past 12 Months: No Problems as a Result of Past Substance Use: None Identified Personal History Living Arrangements: Home (rental home with his ) Childhood: Grew up in [place]. 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 Patient History Medical History Depression H/O: HTN (hypertension) Surgical History No pertinent past surgical history Social History Smoking Status: Never smoker Hx Alcohol Use: Yes Hx Substance Use: No Preferred Language: Afghan Telemarketer Required: No Beliefs That Will Affect Care: None Feels Safe at Home: Yes Assistive Devices: Glasses Assistive Devices Comment: pt does not have his glasses here at the hospital Review of Systems Review of Systems: All systems reviewed & are unremarkable except as noted in HPI & below (some fatigue, shakiness, weak, leg and back chronic pain ) Physical Exam Psychiatric: Orientation: alert and oriented x 3 Apperance: appropriately dressed and appropriately groomed Eye Contact: good eye contact Motor Behavior: steady gait and station and no abnormal motor movements Speech: normal rate/rhythm/volume of speech Affect: + depressed affect Mood: + depressed mood and + anxious mood Thought Process: goal directed thought process Thought Content: reality based without delusions Suicidal Thoughts: denies suicidal plan and denies suicidal intent; + reports suicidal thoughts (denies SI now, suicide attempt via klonopin/alcohol and knife laceration ) Homicidal Thoughts: denies homicidal thoughts Hallucinations: no auditory hallucinations and no visual hallucinations Cognition: recent memory grossly intact, remote memory grossly intact, attention grossly intact and language grossly intact Estimated Intelligence: consistent with education level Insight: + fair insight Judgement: + fair judgement Vital Signs (Past 24 Hours): Last Vital Signs Temp 36.9 C 04/16/22 08:17 Pulse 72 04/16/22 08:17 Resp 18 04/16/22 08:17 BP 125/78 04/16/22 08:17 Pulse Ox 97 04/16/22 08:16 Exam Statement: A physical exam was performed in the ED by Dr. Yañez for the purposes of medical clearance. I accept that physical as correct and adequate for the purposes of the inpatient physical exam. Results & Data ([facility] [place]) Laboratory Results Laboratory Results - last 24 hr 04/15/22 04/15/22 04/15/22 18:16 18:16 18:16 WBC 5.80 RBC 4.74 Hgb 16.0 Hct 43.6 MCV 92.0 MCH 33.8 MCHC 36.7 H RDW Std Deviation 43.2 RDW Coeff of Stacey 12.7 Plt Count 125 L MPV 11.9 H Immature Gran % (Auto) 0.2 Neut % (Auto) 64.0 Lymph % (Auto) 27.1 Towner % (Auto) 7.1 Eos % (Auto) 1.4 Baso % (Auto) 0.2 Neut # (Auto) 3.72 Lymph # (Auto) 1.57 Towner # (Auto) 0.41 Eos # (Auto) 0.08 Baso # (Auto) 0.01 Immature Gran # (Auto) 0.01 Sodium 139 Potassium 3.3 L Chloride 102 Carbon Dioxide 28 Anion Gap 9 BUN 18 Creatinine 1.25 Est Cr Clr Drug Dosing Not Reportable Est GFR ( Amer) 73.1 Est GFR (Non-Af Amer) 63.1 BUN/Creatinine Ratio 14.4 Glucose 88 Calcium 9.3 Magnesium Total Bilirubin 0.6 AST 11 L ALT 16 Alkaline Phosphatase 61 Total Protein 6.5 Albumin 4.0 Globulin 2.5 Albumin/Globulin Ratio 1.6 TSH 2.455 Urine Color Urine Appearance Urine pH Ur Specific Devon Urine Protein Urine Glucose (UA) Urine Ketones Urine Blood Urine Nitrite Urine Bilirubin Urine Urobilinogen Ur Leukocyte Esterase Urine WBC (Auto) Urine RBC (Auto) U Hyaline Cast (Auto) U Epithel Cells (Auto) Urine Bacteria (Auto) Granular Casts Urine Mucus Salicylates Urine Opiates Screen Ur Methadone, Qual Acetaminophen Urine Barbiturates Ur Phencyclidine (PCP) U Amphetamin/Meth Scrn Urine MDEA MDMA (Ecstasy) Screen MDMA Urine MDMA U Benzodiazepines Scrn Ur Cocaine Metabolite U Marijuana (THC) Screen Ethyl Alcohol mg/dL SARS-CoV-2, RNA, NAAT 04/15/22 04/15/22 04/15/22 18:16 18:16 18:16 WBC RBC Hgb Hct MCV MCH MCHC RDW Std Deviation RDW Coeff of Stacey Plt Count MPV Immature Gran % (Auto) Neut % (Auto) Lymph % (Auto) Towner % (Auto) Eos % (Auto) Baso % (Auto) Neut # (Auto) Lymph # (Auto) Towner # (Auto) Eos # (Auto) Baso # (Auto) Immature Gran # (Auto) Sodium Potassium Chloride Carbon Dioxide Anion Gap BUN Creatinine Est Cr Clr Drug Dosing Est GFR ( Amer) Est GFR (Non-Af Amer) BUN/Creatinine Ratio Glucose Calcium Magnesium 2.1 Total Bilirubin AST ALT Alkaline Phosphatase Total Protein Albumin Globulin Albumin/Globulin Ratio TSH Urine Color Urine Appearance Urine pH Ur Specific Devon Urine Protein Urine Glucose (UA) Urine Ketones Urine Blood Urine Nitrite Urine Bilirubin Urine Urobilinogen Ur Leukocyte Esterase Urine WBC (Auto) Urine RBC (Auto) U Hyaline Cast (Auto) U Epithel Cells (Auto) Urine Bacteria (Auto) Granular Casts Urine Mucus Salicylates < 3.0 L Urine Opiates Screen Ur Methadone, Qual Acetaminophen < 3 L Urine Barbiturates Ur Phencyclidine (PCP) U Amphetamin/Meth Scrn Urine MDEA MDMA (Ecstasy) Screen MDMA Urine MDMA U Benzodiazepines Scrn Ur Cocaine Metabolite U Marijuana (THC) Screen Ethyl Alcohol mg/dL 50.9 H SARS-CoV-2, RNA, NAAT 04/15/22 04/15/22 04/15/22 19:51 20:54 20:54 WBC RBC Hgb Hct MCV MCH MCHC RDW Std Deviation RDW Coeff of Stacey Plt Count MPV Immature Gran % (Auto) Neut % (Auto) Lymph % (Auto) Towner % (Auto) Eos % (Auto) Baso % (Auto) Neut # (Auto) Lymph # (Auto) Towner # (Auto) Eos # (Auto) Baso # (Auto) Immature Gran # (Auto) Sodium Potassium Chloride Carbon Dioxide Anion Gap BUN Creatinine Est Cr Clr Drug Dosing Est GFR ( Amer) Est GFR (Non-Af Amer) BUN/Creatinine Ratio Glucose Calcium Magnesium Total Bilirubin AST ALT Alkaline Phosphatase Total Protein Albumin Globulin Albumin/Globulin Ratio TSH Urine Color Yellow Urine Appearance Clear Urine pH 5.5 Ur Specific Devon 1.015 Urine Protein Negative Urine Glucose (UA) Negative Urine Ketones Negative Urine Blood Trace H Urine Nitrite Negative Urine Bilirubin Negative Urine Urobilinogen Negative Ur Leukocyte Esterase Negative Urine WBC (Auto) 1-5 Urine RBC (Auto) 0-4 U Hyaline Cast (Auto) 10-30 H U Epithel Cells (Auto) 20-30 H Urine Bacteria (Auto) Negative Granular Casts 1-5 H Urine Mucus Present A Salicylates Urine Opiates Screen Neg Ur Methadone, Qual Neg Acetaminophen Urine Barbiturates Neg Ur Phencyclidine (PCP) Neg U Amphetamin/Meth Scrn Neg Urine MDEA MDMA (Ecstasy) Screen Pos H MDMA Urine MDMA U Benzodiazepines Scrn Neg Ur Cocaine Metabolite Neg U Marijuana (THC) Screen Neg Ethyl Alcohol mg/dL SARS-CoV-2, RNA, NAAT NEGATIVE 04/15/22 20:54 WBC RBC Hgb Hct MCV MCH MCHC RDW Std Deviation RDW Coeff of Stacey Plt Count MPV Immature Gran % (Auto) Neut % (Auto) Lymph % (Auto) Towner % (Auto) Eos % (Auto) Baso % (Auto) Neut # (Auto) Lymph # (Auto) Towner # (Auto) Eos # (Auto) Baso # (Auto) Immature Gran # (Auto) Sodium Potassium Chloride Carbon Dioxide Anion Gap BUN Creatinine Est Cr Clr Drug Dosing Est GFR ( Amer) Est GFR (Non-Af Amer) BUN/Creatinine Ratio Glucose Calcium Magnesium Total Bilirubin AST ALT Alkaline Phosphatase Total Protein Albumin Globulin Albumin/Globulin Ratio TSH Urine Color Urine Appearance Urine pH Ur Specific Devon Urine Protein Urine Glucose (UA) Urine Ketones Urine Blood Urine Nitrite Urine Bilirubin Urine Urobilinogen Ur Leukocyte Esterase Urine WBC (Auto) Urine RBC (Auto) U Hyaline Cast (Auto) U Epithel Cells (Auto) Urine Bacteria (Auto) Granular Casts Urine Mucus Salicylates Urine Opiates Screen Ur Methadone, Qual Acetaminophen Urine Barbiturates Ur Phencyclidine (PCP) U Amphetamin/Meth Scrn Urine MDEA Pending MDMA (Ecstasy) Screen MDMA Pending Urine MDMA Pending U Benzodiazepines Scrn Ur Cocaine Metabolite U Marijuana (THC) Screen Ethyl Alcohol mg/dL SARS-CoV-2, RNA, NAAT Current Inpatient Medications Current Inpatient Medications: Current Inpatient Medications Acetaminophen (Acetaminophen 325 Mg Tab) 650 mg PO Q4H PRN PRN Reason: Headache or Minor Fever Stop: 05/15/22 22:36 Al Hydrox/Mg Hydrox/Simethicone (Aluminum/Magnesium Susp 30 Ml Udc) 30 ml PO Q 4H PRN PRN Reason: GI Upset Stop: 05/15/22 22:36 Bismuth Subsalicylate (Bismuth Subsalicylate Liqd 236 Ml) 15 ml PO PRN PRN PRN Reason: Loose Stool Stop: 05/15/22 22:36 Hydroxyzine HCl (Hydroxyzine Hcl 25 Mg Tab) 50 mg PO HSZ PRN PRN Reason: Insomnia Stop: 05/15/22 22:36 Hydroxyzine HCl (Hydroxyzine Hcl 25 Mg Tab) 25 mg PO Q4H PRN PRN Reason: Anxiety Stop: 05/15/22 22:36 Lorazepam (Lorazepam 1 Mg Tab) 1 - 3 mg PO UD PRN; Protocol PRN Reason: EtoH Withdrawal AWSS 6-10+ Stop: 05/15/22 22:36 Magnesium Hydroxide (Magnesium Hydroxide Susp 30 Ml Udc) 30 ml PO DAILY PRN PRN Reason: Constipation Stop: 05/15/22 22:36 Sodium Chloride (Sodium Chloride 0.65% Na Soln 45 Ml (Sharkey)) 1 - 2 sprays NA PRN PRN PRN Reason: Nasal Dryness/Congestion Stop: 05/15/22 22:36
--- NOTE | 2022-04-16 14:46 | Electrocardiogram Report ---
Test Reason : Blood Pressure : / mmHG Vent. Rate : 076 BPM Atrial Rate : 076 BPM P-R Int : 170 ms QRS Dur : 102 ms QT Int : 418 ms P-R-T Axes : 066 -57 -05 degrees QTc Int : 470 ms Normal sinus rhythm Left anterior fascicular block Poor R wave progression, consider anterior NH vs. lead placement vs. LVH Abnormal ECG Confirmed by Skyler Hinton ([id number]) on 04/16/2022 2:46:01 PM Referred By: REFERRED SELF Confirmed By:Bo Hinton
--- NOTE | 2022-04-17 09:03 | Psychiatric Progress Note ---
Date of Service April 17, 2022 Impression / Recommendations Impression This is a 56 year old man with a history of depression and anxiety who was admitted for suicide attempt via overdose of clonazepam and alcohol and knife laceration in the context of multiple recent stressors including unsuccessful move to [place] with recent relocation back to [place]. Diagnostically consistent with MDD with anxious distress as well as ROSE with panic attack. The patient is deemed unstable and requires psychiatric hospitalization for diagnostic clarification, safety and stabilization, medication management and development of further coping skills. Given his overdose and ongoing sedation will hold his prior to admission psychiatric medications for one more day. We did discuss medication options including restarting sertraline and Wellbutrin vs alternative SSRI vs SNRI. He's thinking he would like to try Cymbalta as it could also help with his back and leg nerve pain. For now will hold on all medications including his home antihypertensives for one more day given low BP this morning and normal this afternoon. 04/17/22: Physical improvement from clonazepam overdose and BP increasing so will restart prior to admission anti-hypertensives tomorrow morning. Discussed medication treatment options in detail. Discussed risks, benefits and alternatives. Patient would like to start and consented to Cymbalta for depression and anxiety. Reviewed side effects including but not limited to: GI, DAMIAN, sexual side effects, HTN and counseled on black box warning of potential for emergence of or increased SI in young adults but potential in adults and need to let staff know should this occur or should they feel unsafe. Also discussed importance of seeking emergency care following discharge if this side effect occurs in the future. He also consents to restarting trazodone for sleep reviewed side effects including but not limited to priapism, dry mouth, sedation, dizziness. (1) Recurrent severe major depressive disorder with anxiety: (2) Depression with suicidal ideation: (3) Overdose: (4) Generalized anxiety disorder with panic attacks: 04/17/22: Start Cymbalta 20mg qd and trazodone 50mg qhs prn. 04/16/22: The patient was admitted to the [facility] ([facility] mental [facility] unit) on q15 min checks (behavioral with suicide precautions) for safety. The patient will participate in group, recreational, and milieu therapies and will be offered additional individual and family sessions as clinically appropriate. -AWSS given clonazepam overdose and prescribed use prior to admission to monitor for vitals and withdrawal symptoms -Hold prior to admission Wellbutrin and sertraline and home antihypertensives lisinopril and hydrochlorothiazide -Likely will start Cymbalta tomorrow -Will contact Dr. Helton for further collateral/updates Inventory Assets Strengths: outpatient support, , willing to seek treatment Needs: additional coping skills, safety/stabilization Suicide Risk Level Suicide Risk Level: High (q15 min suicide checks) Suicide Risk Level Comments: Acute risk is high given suicide attempt and laceration prior to admission, depression, and hopelessness but feels safe on the unit and denies current SI. Risk Factors Assessment Male: Yes : Yes Do You Have Access To A Gun?: No Health Problems: No Mental Health Diagnoses: Yes Substance Use Disorders: No Previous Attempt: Yes Family History of Suicide: No Previous Psychiatric Hospitalization: No Hopelessness: Yes Protective Factors Assessment : Yes Employed: No Stable Relationships: Yes Supportive Family: Yes Good Rapport with Provider: Yes Interval History Identifying Information DERIAN IQBAL is a 56-year-old man who currently lives in [facility] with his , has a history of depression and anxiety, and was admitted on 04/15/22 22:37 on a 201 voluntary commitment for suicide attempt via ingestion of clonazepam and alcohol and cutting throat superficially with a knife. Chief Complaint "The depression is a little bit better". Review of Systems Sleep Information Total Hours of Sleep: 7 Sleep Comments: pt on q-15 minute checks Meal Information Percent Meal Consumed - Breakfast: 100 Percent Meal Consumed - Lunch: 80 Percent Meal Consumed - Dinner: 90 Subjective Subjective Patient was seen & assessed and interval progress reviewed with treatment team nursing and social work. He attending afternoon groups and spent time on the phone talking to his family. He became more anxious over the course of the evening. Not scoring on AWSS. Today reports he continues to have depression but denies SI. No longer feeling any side effects from clonazepam ingestion-no dizziness, steady on his feet, no shakiness, alert. Slept well last night. Physical Exam Psychiatric Orientation: alert and oriented x 3 Apperance: appropriately dressed and appropriately groomed Eye Contact: good eye contact Motor Behavior: steady gait and station and no abnormal motor movements Speech: normal rate/rhythm/volume of speech Affect: + depressed affect Mood: + depressed mood and + anxious mood Thought Process: goal directed thought process Thought Content: reality based without delusions Suicidal Thoughts: denies suicidal plan and denies suicidal intent; + reports suicidal thoughts (denies SI now, suicide attempt via klonopin/alcohol and knife laceration ) Homicidal Thoughts: denies homicidal thoughts Hallucinations: no auditory hallucinations and no visual hallucinations Cognition: recent memory grossly intact, remote memory grossly intact, attention grossly intact and language grossly intact Estimated Intelligence: consistent with education level Insight: + fair insight Judgement: + fair judgement Vital Signs (Past 24 Hours) Last Vital Signs Temp 36.5 C 04/17/22 06:29 Pulse 66 04/17/22 06:31 Resp 16 04/17/22 06:29 BP 111/75 04/17/22 06:31 Pulse Ox 95 04/17/22 06:29 Results & Data ([facility]) Current Inpatient Medications Current Inpatient Medications: Current Inpatient Medications Acetaminophen (Acetaminophen 325 Mg Tab) 650 mg PO Q4H PRN PRN Reason: Headache or Minor Fever Stop: 05/15/22 22:36 Al Hydrox/Mg Hydrox/Simethicone (Aluminum/Magnesium Susp 30 Ml Udc) 30 ml PO Q4H PRN PRN Reason: GI Upset Stop: 05/15/22 22:36 Bismuth Subsalicylate (Bismuth Subsalicylate Liqd 236 Ml) 15 ml PO PRN PRN PRN Reason: Loose Stool Stop: 05/15/22 22:36 Hydroxyzine HCl (Hydroxyzine Hcl 25 Mg Tab) 50 mg PO HSZ PRN PRN Reason: Insomnia Stop: 05/15/22 22:36 Hydroxyzine HCl (Hydroxyzine Hcl 25 Mg Tab) 25 mg PO Q4H PRN PRN Reason: Anxiety Stop: 05/15/22 22:36 Lorazepam (Lorazepam 1 Mg Tab) 1 - 3 mg PO UD PRN; Protocol PRN Reason: EtoH Withdrawal AWSS 6-10+ Stop: 05/15/22 22:36 Magnesium Hydroxide (Magnesium Hydroxide Susp 30 Ml Udc) 30 ml PO DAILY PRN PRN Reason: Constipation Stop: 05/15/22 22:36 Sodium Chloride (Sodium Chloride 0.65% Na Soln 45 Ml ([place])) 1 - 2 sprays NA PRN PRN PRN Reason: Nasal Dryness/Congestion Stop: 05/15/22 22:36 Mental Health & Subst Abuse Tx Psychiatrist Name of Psychiatrist: Ashia Helton Psychiatrist's Psychiatric Appointment Comment: [address], [facility] [address] Therapist Name of Therapist: Chris Parker (telehealth) Post Discharge Appointments Primary Care Physician Name Of Family Doctor: Chris Rhodes (1) Overdose Encounter type: initial encounter Injury intent: intentional self-harm Qualified Code(s): T50.902A - Poisoning by unspecified drugs, medicaments and biological substances, intentional self-harm, initial encounter
[2022-04-17] MEDS ORDERED: traZODone HCL 50 MG TAB PO PRN (15:01)
[2022-04-17] MEDS: DULoxetine HCL 20 MG CAP PO SCH (16:33)
--- NOTE | 2022-04-18 08:47 | Psychiatric Progress Note ---
Date of Service April 18, 2022 Impression / Recommendations Impression This is a 56 year old man with a history of depression and anxiety who was admitted for suicide attempt via overdose of clonazepam and alcohol and knife laceration in the context of multiple recent stressors including unsuccessful move to [place] with recent relocation back to [place]. Diagnostically consistent with MDD with anxious distress as well as ROSE with panic attack. The patient is deemed unstable and requires psychiatric hospitalization for diagnostic clarification, safety and stabilization, medication management and development of further coping skills. Given his overdose and ongoing sedation will hold his prior to admission psychiatric medications for one more day. We did discuss medication options including restarting sertraline and Wellbutrin vs alternative SSRI vs SNRI. He's thinking he would like to try Cymbalta as it could also help with his back and leg nerve pain. For now will hold on all medications including his home antihypertensives for one more day given low BP this morning and normal this afternoon. 04/18/22: Some side effects from duloxetine initiation-GI symptoms improving but diaphoresis last night so will continue at low dose without further titration for now. If night sweats persist and are intolerable then may need to consider going back to an SSRI option. For now he wants to continue with duloxetine as he feels it may be helping with some of his back pain. Ongoing flat affect and depression. AWSS discontinued as not scoring and vital signs have improved and no clinical signs of benzo withdrawal. (1) Recurrent severe major depressive disorder with anxiety: (2) Depression with suicidal ideation: (3) Overdose: (4) Generalized anxiety disorder with panic attacks: 04/18/22: Continue with current medications and tx plan. Update provided to Dr. Helton's office. 04/17/22: Start Cymbalta 20mg qd and trazodone 50mg qhs prn. 04/16/22: The patient was admitted to the [facility] ([facility] inpatient mental health unit) on q15 min checks (behavioral with suicide precautions) for safety. The patient will participate in group, recreational, and milieu therapies and will be offered additional individual and family sessions as clinically appropriate. -AWSS given clonazepam overdose and prescribed use prior to admission to monitor for vitals and withdrawal symptoms -Hold prior to admission Wellbutrin and sertraline and home antihypertensives lisinopril and hydrochlorothiazide -Likely will start Cymbalta tomorrow -Will contact Dr. Helton for further collateral/updates Inventory Assets Strengths: outpatient support, , willing to seek treatment Needs: additional coping skills, safety/stabilization Suicide Risk Level Suicide Risk Level: High (q15 min suicide checks) Suicide Risk Level Comments: Acute risk is high given suicide attempt and laceration prior to admission, depression, and hopelessness but feels safe on the unit and denies current SI. Risk Factors Assessment Male: Yes : Yes Do You Have Access To A Gun?: No Health Problems: No Mental Health Diagnoses: Yes Substance Use Disorders: No Previous Attempt: Yes Family History of Suicide: No Previous Psychiatric Hospitalization: No Hopelessness: Yes Protective Factors Assessment : Yes Employed: No Stable Relationships: Yes Supportive Family: Yes Good Rapport with Provider: Yes Interval History Identifying Information DERIAN IQBAL is a 56-year-old man who currently lives in [facility] with his , has a history of depression and anxiety, and was admitted on 04/15/22 22:37 on a 201 voluntary commitment for suicide attempt via ingestion of clonazepam and alcohol and cutting throat superficially with a knife. Chief Complaint "I'm feeling better". Review of Systems Sleep Information Total Hours of Sleep: 6.75 Sleep Comments: pt on q-15 minute checks Meal Information Percent Meal Consumed - Breakfast: 100 Percent Meal Consumed - Lunch: 50 Percent Meal Consumed - Dinner: 90 Nutrition Comment: Pt has upset stomach from new medication. Offered crackers and cristina joanie, pt declined. Subjective Subjective Patient was seen & assessed and interval progress reviewed with treatment team nursing and social work. Had some GI symptoms and drowsiness last night, declined dinner. He was excused from groups due to this. Continues to have a very flat affect. Did not use trazodone last night and had trouble sleeping and some night sweats which is atypical. Discussed that this can sometimes be a side effect of Cymbalta. he wants to continue with Cymbalta as he feels it may already be reducing some of his back and nerve pain. No GI issues after morning dose. Denies SI. Feels his mood is improving. Journaling and attended all groups today. Physical Exam Psychiatric Orientation: alert and oriented x 3 Apperance: appropriately dressed and appropriately groomed Eye Contact: good eye contact Motor Behavior: steady gait and station and no abnormal motor movements Speech: normal rate/rhythm/volume of speech Affect: + depressed affect Mood: + depressed mood and + anxious mood Thought Process: goal directed thought process Thought Content: reality based without delusions Suicidal Thoughts: denies suicidal thoughts Homicidal Thoughts: denies homicidal thoughts Hallucinations: no auditory hallucinations and no visual hallucinations Cognition: recent memory grossly intact, remote memory grossly intact, attention grossly intact and language grossly intact Estimated Intelligence: consistent with education level Insight: + fair insight Judgement: + fair judgement Vital Signs (Past 24 Hours) Last Vital Signs Temp 36.4 C L 04/18/22 06:29 Pulse 65 04/18/22 06:30 Resp 18 04/18/22 06:29 BP 130/86 04/18/22 06:30 Pulse Ox 96 04/18/22 06:32 Results & Data ([facility]) Current Inpatient Medications Current Inpatient Medications: Current Inpatient Medications Acetaminophen (Acetaminophen 325 Mg Tab) 650 mg PO Q4H PRN PRN Reason: Headache or Minor Fever Stop: 05/15/22 22:36 Al Hydrox/Mg Hydrox/Simethicone (Aluminum/Magnesium Susp 30 Ml Udc) 30 ml PO Q4H PRN PRN Reason: GI Upset Stop: 05/15/22 22:36 Bismuth Subsalicylate (Bismuth Subsalicylate Liqd 236 Ml) 15 ml PO PRN PRN PRN Reason: Loose Stool Stop: 05/15/22 22:36 Duloxetine HCl (Duloxetine Hcl 20 Mg Cap) 20 mg PO QAM [facility] Stop: 05/17/22 15:29 Last Admin: 04/17/22 16:33 Dose: 20 mg Documented by: Hydrochlorothiazide (Hydrochlorothiazide 25 Mg Tab) 25 mg PO QAM MAINOR Stop: 05/18/22 08:59 Hydroxyzine HCl (Hydroxyzine Hcl 25 Mg Tab) 50 mg PO HSZ PRN PRN Reason: Insomnia Stop: 05/15/22 22:36 Hydroxyzine HCl (Hydroxyzine Hcl 25 Mg Tab) 25 mg PO Q4H PRN PRN Reason: Anxiety Stop: 05/15/22 22:36 Lisinopril (Lisinopril 40 Mg Tab) 40 mg PO DAILY MAINOR Stop: 05/18/22 08:59 Lorazepam (Lorazepam 1 Mg Tab) 1 - 3 mg PO UD PRN; Protocol PRN Reason: EtoH Withdrawal AWSS 6-10+ Stop: 05/15/22 22:36 Magnesium Hydroxide (Magnesium Hydroxide Susp 30 Ml Udc) 30 ml PO DAILY PRN PRN Reason: Constipation Stop: 05/15/22 22:36 Sodium Chloride (Sodium Chloride 0.65% Na Soln 45 Ml ([place])) 1 - 2 sprays NA PRN PRN PRN Reason: Nasal Dryness/Congestion Stop: 05/15/22 22:36 Trazodone HCl (Trazodone Hcl 50 Mg Tab) 50 mg PO HS PRN PRN Reason: insomnia Stop: 05/17/22 21:59 Mental Health & Subst Abuse Tx Psychiatrist Name of Psychiatrist: Ashia Helton Psychiatrist's Date of Appointment with Psychiatrist: 04/25/22 Time of Appointment with Psychiatrist: 1:45 PM Psychiatric Appointment Comment: [address] [place] [id number] - in person Therapist Name of Therapist: [facility] Tess Parker (telehealth) Post Discharge Appointments Primary Care Physician Name Of Family Doctor: [facility] Primary Care Provider Appointment Comment: [address], [address], [place] [address] (1) Overdose Encounter type: initial encounter Injury intent: intentional self-harm Qualified Code(s): T50.902A - Poisoning by unspecified drugs, medicaments and biological substances, intentional self-harm, initial encounter
[2022-04-18] MEDS: DULoxetine HCL 20 MG CAP PO SCH (09:46)
[2022-04-18] MEDS: hydroCHLOROthiazide 25 MG TAB PO SCH (09:46)
[2022-04-18] MEDS: lisinopril 40 MG TAB PO SCH (09:46)
[2022-04-19] MEDS: hydroCHLOROthiazide 25 MG TAB PO SCH (07:56)
[2022-04-19] MEDS: DULoxetine HCL 20 MG CAP PO SCH (07:57)
[2022-04-19] MEDS: lisinopril 40 MG TAB PO SCH (07:57)
--- NOTE | 2022-04-19 09:38 | Discharge Summary ---
Date of Service April 19, 2022 History of Present Illness As per Dr. Horton on admission: Hernandez presents for psychiatric admission for worsening depression and suicide attempt via ingestion of unknown quantity of clonazepam and alcohol as a suicide attempt as well as cutting his throat with a knife causing a superficial laceration. Estimate of ~15-20 tabs of 0.5 clonazepam. This occurred in the context of multiple psychosocial stressors including recent jail, unsuccessful move and job at [employer] in [place], they couldn't find housing in [place] due to rental being unavailable which was very stressful, disappointment from brief employment with [employer], recently sold their house and now living in a rental. Feeling like a burden due to no longer contributing financially. His therapist has also been away for the last two weeks. Last period of severe depression was during his divorce 20 years ago. Over the last 6 weeks he developed worsening anxiety and depression in context of stressors per above. He notes he a great weekend but then yesterday it "all came crashing in and I couldn't get out of my mind and things just got worse". He feels compared to a few weeks ago he'd been doing better up until yesterday. The SI came on quite abruptly, he can't recall what triggered it but that "it went from good to black that fast". He had thoughts about overdosing before but never acted on it. He wasn't sure how much clonazepam it would take to kill him. He mixed the clonazepam in with the alcohol and then drank it. Then after drinking the alcohol/pill mixture he cut his neck superficially with a knife. He can't recall how he was found or how his got him to the ED. He endorses current d epressive symptoms including hopelessness, helplessness, feeling like a burden, back pain, decreased sleep, decreased appetite (lost about 30 lbs over the last 3 months). He also endorses anxiety symptoms including shakiness, panic attacks (last one week ago), and generalized worries. He has been taking sertraline 100mg, Wellbutrin XL 150mg and trazodone 150mg qhs for his mood for about the last 4 weeks and clonazepam since February 2022 for anxiety and panic attacks. Psychiatric ROS notable for no hx or current symptoms of makayla, psychosis, or OCD. Physical Exam Psychiatric See admission H&P and DOD assessment. Vital Signs (Past 24 Hours) Last Vital Signs Temp 36.5 C 04/19/22 06:43 Pulse 69 04/19/22 06:45 Resp 18 04/19/22 06:43 BP 149/87 H 04/19/22 06:45 Pulse Ox 96 04/18/22 08:00 Principal Diagnosis major depressive disorder Psychiatric Data See daily stay summary. In short, safety was maintained and the patient was cooperative with care. Medication changes included discontinuation of Zoloft and Wellbutrin in favor of a trial of Cymbalta and they tolerated this well after a day of GI upset. A family session was held with the patient's on the day of discharge and both were comfortable with his safety plan. to assist with overseeing pill minder. He does not have access to Klonopin and voices good understanding of risks of combining medications with ETOH. Day of Discharge Assessment Today the patient voices readiness for discharge. They note improvement in mood and deny thoughts to harm self or others. Thoughts remain organized and they are improved from admission. There is no evidence of psychosis. They agree to take mediations as prescribed and keep follow-up appointments. They are stable for discharge to outpatient level of care. He is very much looking forward to walking his daughter's dog and attending a show with his this weekend. Transition of Care Transition Of Care Record: was reviewed with the patient Advance Directives Advance Directives Information Provided: Yes Advance Directives: No Mental Health Advance Directive: No Advance Directives on File: No Living Will: No Power of Head Of Sales Promotion: No Advance Directives Reason:: Declines as Mental Health Visit. Suicide Risk Level Suicide Risk Level Comments: low as no longer requiring 24 hr supervision, stable for discharge to outpatient level of care. Risk Factors Assessment Male: Yes : Yes Do You Have Access To A Gun?: No Health Problems: No Mental Health Diagnoses: Yes Substance Use Disorders: No Previous Attempt: Yes Family History of Suicide: No Previous Psychiatric Hospitalization: No Hopelessness: Yes Protective Factors Assessment : Yes Employed: No Stable Relationships: Yes Supportive Family: Yes Good Rapport with Provider: Yes Tobacco Cessation at Discharge Tobacco Cessation Medication Prescribed at Discharge: Not Applicable/Non-Smoker Total Time Total Time Spent: Greater Than 30 Minutes Total Time Includes: Examination of the patient, Discharge Planning and Medication Reconciliation Discharge Data Lab Results 04/15/22 04/15/22 04/15/22 18:16 18:16 18:16 WBC 5.80 RBC 4.74 Hgb 16.0 Hct 43.6 MCV 92.0 MCH 33.8 MCHC 36.7 H RDW Std Deviation 43.2 RDW Coeff of Stacey 12.7 Plt Count 125 L MPV 11.9 H Immature Gran % (Auto) 0.2 Neut % (Auto) 64.0 Lymph % (Auto) 27.1 [place] % (Auto) 7.1 Eos % (Auto) 1.4 Baso % (Auto) 0.2 Neut # (Auto) 3.72 Lymph # (Auto) 1.57 [place] # (Auto) 0.41 Eos # (Auto) 0.08 Baso # (Auto) 0.01 Immature Gran # (Auto) 0.01 Sodium 139 Potassium 3.3 L Chloride 102 Carbon Dioxide 28 Anion Gap 9 BUN 18 Creatinine 1.25 Est Cr Clr Drug Dosing Not Reportable Est GFR ( Amer) 73.1 Est GFR (Non-Af Amer) 63.1 BUN/Creatinine Ratio 14.4 Glucose 88 Calcium 9.3 Magnesium Total Bilirubin 0.6 AST 11 L ALT 16 Alkaline Phosphatase 61 Total Protein 6.5 Albumin 4.0 Globulin 2.5 Albumin/Globulin Ratio 1.6 TSH 2.455 Urine Color Urine Appearance Urine pH Ur Specific [place] Urine Protein Urine Glucose (UA) Urine Ketones Urine Blood Urine Nitrite Urine Bilirubin Urine Urobilinogen Ur Leukocyte Esterase Urine WBC (Auto) Urine RBC (Auto) U Hyaline Cast (Auto) U Epithel Cells (Auto) Urine Bacteria (Auto) Granular Casts Urine Mucus Salicylates Urine Opiates Screen Ur Methadone, Qual Acetaminophen Urine Barbiturates Ur Phencyclidine (PCP) U Amphetamin/Meth Scrn MDMA (Ecstasy) Screen U Benzodiazepines Scrn Ur Cocaine Metabolite U Marijuana (THC) Screen Ethyl Alcohol mg/dL SARS-CoV-2, RNA, NAAT 04/15/22 04/15/22 04/15/22 18:16 18:16 18:16 WBC RBC Hgb Hct MCV MCH MCHC RDW Std Deviation RDW Coeff of Stacey Plt Count MPV Immature Gran % (Auto) Neut % (Auto) Lymph % (Auto) [place] % (Auto) Eos % (Auto) Baso % (Auto) Neut # (Auto) Lymph # (Auto) [place] # (Auto) Eos # (Auto) Baso # (Auto) Immature Gran # (Auto) Sodium Potassium Chloride Carbon Dioxide Anion Gap BUN Creatinine Est Cr Clr Drug Dosing Est GFR ( Amer) Est GFR (Non-Af Amer) BUN/Creatinine Ratio Glucose Calcium Magnesium 2.1 Total Bilirubin AST ALT Alkaline Phosphatase Total Protein Albumin Globulin Albumin/Globulin Ratio TSH Urine Color Urine Appearance Urine pH Ur Specific [place] Urine Protein Urine Glucose (UA) Urine Ketones Urine Blood Urine Nitrite Urine Bilirubin Urine Urobilinogen Ur Leukocyte Esterase Urine WBC (Auto) Urine RBC (Auto) U Hyaline Cast (Auto) U Epithel Cells (Auto) Urine Bacteria (Auto) Granular Casts Urine Mucus Salicylates < 3.0 L Urine Opiates Screen Ur Methadone, Qual Acetaminophen < 3 L Urine Barbiturates Ur Phencyclidine (PCP) U Amphetamin/Meth Scrn MDMA (Ecstasy) Screen U Benzodiazepines Scrn Ur Cocaine Metabolite U Marijuana (THC) Screen Ethyl Alcohol mg/dL 50.9 H SARS-CoV-2, RNA, NAAT 04/15/22 04/15/22 04/15/22 19:51 20:54 20:54 WBC RBC Hgb Hct MCV MCH MCHC RDW Std Deviation RDW Coeff of Stacey Plt Count MPV Immature Gran % (Auto) Neut % (Auto) Lymph % (Auto) [place] % (Auto) Eos % (Auto) Baso % (Auto) Neut # (Auto) Lymph # (Auto) [place] # (Auto) Eos # (Auto) Baso # (Auto) Immature Gran # (Auto) Sodium Potassium Chloride Carbon Dioxide Anion Gap BUN Creatinine Est Cr Clr Drug Dosing Est GFR ( Amer) Est GFR (Non-Af Amer) BUN/Creatinine Ratio Glucose Calcium Magnesium Total Bilirubin AST ALT Alkaline Phosphatase Total Protein Albumin Globulin Albumin/Globulin Ratio TSH Urine Color Yellow Urine Appearance Clear Urine pH 5.5 Ur Specific [place] 1.015 Urine Protein Negative Urine Glucose (UA) Negative Urine Ketones Negative Urine Blood Trace H Urine Nitrite Negative Urine Bilirubin Negative Urine Urobilinogen Negative Ur Leukocyte Esterase Negative Urine WBC (Auto) 1-5 Urine RBC (Auto) 0-4 U Hyaline Cast (Auto) 10-30 H U Epithel Cells (Auto) 20-30 H Urine Bacteria (Auto) Negative Granular Casts 1-5 H Urine Mucus Present A Salicylates Urine Opiates Screen Neg Ur Methadone, Qual Neg Acetaminophen Urine Barbiturates Neg Ur Phencyclidine (PCP) Neg U Amphetamin/Meth Scrn Neg MDMA (Ecstasy) Screen Pos H U Benzodiazepines Scrn Neg Ur Cocaine Metabolite Neg U Marijuana (THC) Screen Neg Ethyl Alcohol mg/dL SARS-CoV-2, RNA, NAAT NEGATIVE Hospital Course (1) Recurrent severe major depressive disorder with anxiety: (2) Depression with suicidal ideation: (3) Overdose: (4) Generalized anxiety disorder with panic attacks: 04/18/22: Continue with current medications and tx plan. Update provided to Dr. Helton's office. 04/17/22: Start Cymbalta 20mg qd and trazodone 50mg qhs prn. 04/16/22: [facility] on q15 min checks (behavioral with suicide precautions) for safety. The patient will participate in group, recreational, and milieu therapies and will be offered additional individual and family sessions as clinically appropriate. -AWSS given clonazepam overdose and prescribed use prior to admission to monitor for vitals and withdrawal symptoms -Hold prior to admission Wellbutrin and sertraline and home antihypertensives lisinopril and hydrochlorothiazide -Likely will start Cymbalta tomorrow -Will contact Dr. Helton for further collateral/updates Mental Health & Subst Abuse Tx Psychiatrist Name of Psychiatrist: Ashia - Dr. Helton Psychiatrist's Date of Appointment with Psychiatrist: 04/25/22 Time of Appointment with Psychiatrist: 1:45 PM Psychiatric Appointment Comment: [address] [facility] [id number] - in person Psychiatrist Release of Information: Obtained, Reviewed and Signed Therapist Name of Therapist: [place] [facility] Tess Parker (telehealth) Therapist Release of Information: Obtained, Reviewed and Signed Post Discharge Appointments Primary Care Physician Name Of Family Doctor: [facility] Primary Care Provider Appointment Comment: [address], [address], [place] [address] Primary Care Release of Information: Obtained, Reviewed and Signed Smoking Cessation Counseling Tobacco Cessation Medication Prescribed at Discharge: Not Applicable/Non-Smoker Contact Information Discharge Discharge [address] [place] [address] Discharge Plan Discharge Items Patient Disposition: Home - Self-Care Reason For Visit: MDD Discharge Diagnosis: major depressive disorder Activity: Resume your previous activity Non-emergency contact: Primary Care Provider, Psychiatrist and Therapist Call non-emergency contact if: you have any medication questions and your symptoms worsen Follow-up/Referrals: Keya Chambers [Primary Care Provider] - Diet: Regular Addtl Attending Provider Instructions: SPECIAL CARE INSTRUCTIONS: 1. Follow through with your scheduled aftercare appointments. If unable to keep an appointment, please call to reschedule. 2. Take your medication only as prescribed. Medication should not be changed or stopped without the approval of your doctor. In the event of worsening symptoms or concerns about side effects, contact your doctor immediately. 3. Utilize new healthy coping skills, anger management skills, and stress management skills learned during your hospitalization. Journal feelings and process them with a support person. Identify stressors or situations that may result in relapse, deterioration or inappropriate behaviors and develop a plan to deal with those issues. 4. If your coping skills are ineffective and you are in crisis, contact your outpatient providers for direction. If unable to reach your providers, please call the [facility] CRISIS LINE AT , go to the [facility] walk-in center at [address], [address], [place], or go to the closest Emergency Room. 5. Avoid alcohol and un-prescribed drugs. 6. You have been provided with the Mental Health Advance Directives Pamphlet for your review. 7. Your condition is stable for discharge to outpatient level of care, but recovery is an ongoing process. Ifthoughts to harm yourself or others return, follow the safety plan developed during your stay. Planning for a safe return home includes securing weapons. Our treatment team recommends weaponsbe removed from the home until your outpatient provider reassesses your progress. In rare cases where the items themselvescannot be removed, guns and ammunitionshould be secured separatelyand keys stored by a reliable personoutside of the home. If you were admitted on an involuntary commitment, the police or other legal authorities may be involved in this process. AFTERCARE APPOINTMENTS: * Please call your insurance company prior to your scheduled appointment to confirm your aftercare providers are covered. Take your insurance information to your appointments. WHO TO CALL AND WHEN: Medical Emergencies: For questions or emergencies related to your hospital stay, please contact the Inpatient Behavioral Health Unit at [phone]. A diet counselor is on-call 22/06 for the Behavioral Health Unit for emergencies At any time you feel your situation is an emergency, you may also call 911 immediately. Pending Studies at Discharge: No Stand-Alone Forms: My [facility] [employer] Net, Smoking Cessation Medications and DC Order Prescriptions: New trazodone 50 mg Tablet 50 mg PO HS PRN (Reason: Insomnia) 15 Days Qty: 15 RF: 0 duloxetine [Cymbalta] 20 mg Capsule,Delayed Release(Dr/Ec) 20 mg PO QAM 30 Days Qty: 30 RF: 0 Continued hydrochlorothiazide 25 mg Tablet 25 mg PO DAILY RF: 0 lisinopril 40 mg Tablet 40 mg PO DAILY RF: 0 Discontinued sertraline [Zoloft] 100 mg tablet 100 mg PO QAM RF: 0 trazodone 150 mg tablet 150 mg PO HS RF: 0 clonazepam [Klonopin] 0.25 mg Tablet,Disintegrating 0.125 mg PO DIRECTED PRN (Reason: NEEDED PER PT) RF: 0 bupropion HCl [Wellbutrin XL] 150 mg tablet extended release 24 hr 150 mg PO QAM RF: 0 Discharge Orders: Discharge Order (Routine); Ordered 04/19/22 Ordered By: Nga Topete Admission Data Admit Date/Time: 04/15/22 22:37 Attending Provider: Nga Topete Admit Provider: Jacqueline Horton Primary Care Provider: Keya Chambers Other Interventions: Discharge Summary Assessment (RN) Last Done: 04/19/22 10:07 PSY Interdisciplinary Discharge Planning Last Done: 04/19/22 10:11 Coding Level of Care Code 30208 D/C day mgmt > 30 min Diagnoses Recurrent severe major depressive disorder with anxiety F33.2; F41.9 Depression with suicidal ideation F32.A; R45.851 Overdose T50.902A Encounter type: initial encounter Injury intent: intentional self-harm Generalized anxiety disorder with panic attacks F41.1; F41.0
[2022-04-20 09:37] LABS: MDA negative; MDEA negative; MDMA (Ecstasy) Urine, Confirm negative
== END 2022-04-19 10:57 | disposition home or self-care (01) | DRG 885 ==
LOC: ED 17:51 → SUATTDRO 22:37 → 3S 22:37